=== PATIENT | female | born 1965 | race Caucasian/White ===

== ENCOUNTER 2017-03-19 19:06 | Emergency (ER) | payer OTHER ==
[~2017-03-19] VITALS: Ht 167.6 cm; Wt 83.5 kg
[2017-03-19 19:10] VITALS: Ht 167.6 cm; Wt 83.5 kg
--- NOTE | 2017-03-19 19:43 | ERD ---
ER Documentation Chief Complaint Date/Time DATE: 03/19/17 TIME: 19:42 Chief Complaint abscess right thigh HPI This is a 52-year-old female who presents the emergency department today for concerns of a piece of plastic in her vagina. Patient states that a couple of days ago she had vaginal itching and went to use cream for the itching but did not have the applicator and therefore used a syringe and forgot that the syringe had a cap on it so when she pushed the syringe in she could not find the. States that she went to the hospital last night and had an ultrasound done that showed a suspected foreign body in the superior vagina. She states that her body was not removed as it could not be "found. Denies any fevers or chills ROS All systems reviewed and are negative except as per history of present illness. Medications Home Meds Active Scripts Naproxen* (Naprosyn*) 500 Mg Tablet, 500 MG PO BID Y for PAIN AND/OR INFLAMMATION, #30 TAB Prov:HÉCTOR DE LA CRUZ PA-C 03/19/17 Hydrocodone/Acetaminophen (Saucier 5-325 Tablet) 1 Each Tablet, 1 TAB PO Q6H Y for PAIN, #10 TAB Prov:HÉCTOR DE LA CRUZ PA-C 03/19/17 Allergies Allergies: Coded Allergies: No Known Allergy (Unverified , 03/19/17) PMhx/Soc Medical and Surgical Hx: pt denies Surgical Hx History of Surgery: No Anesthesia Reaction: No Hx Neurological Disorder: No Hx Respiratory Disorders: No Hx Cardiac Disorders: No Hx Psychiatric Problems: No Hx Miscellaneous Medical Probl: Yes (Vaginal Foreign Body) Hx Alcohol Use: No Hx Substance Use: No Hx Tobacco Use: No Smoking Status: Never smoker Physical Exam Vitals Vital Signs Date Time Temp Pulse Resp B/P Pulse Ox O2 Delivery O2 Flow Rate FiO2 03/19/17 19:10 99.2 60 20 120/60 99 Physical Exam Const: NAD Head: Atraumatic Eyes: Normal Conjunctiva ENT: Normal External Ears, Nose and Mouth. Neck: Full range of motion..~ No meningismus. Resp: Clear to auscultation bilaterally Cardio: Regular rate and rhythm, no murmurs Abd: Soft, non tender, non distended. Normal bowel sounds : Vaginal exam with evidence of vaginal discharge. No evidence of foreign body. No cervical motion tenderness. Skin: No petechiae or rashes Back: No midline or flank tenderness Ext: No cyanosis, or edema Neur: Awake and alert Psych: Normal Mood and Affect Result Diagram: 03/19/17200503/19/172005 Results 24 hrs Laboratory Tests Test 03/19/17 20:00 03/19/17 20:06 Urine Color STRAW Urine Clarity CLEAR Urine pH 6.0 Urine Specific [place] 1.010 Urine Ketones NEGATIVEmg/dL Urine Nitrite NEGATIVEmg/dL Urine Bilirubin NEGATIVEmg/dL Urine Urobilinogen NEGATIVEmg/dL Urine Leukocyte Esterase TRACELeu/ul Urine Microscopic RBC 0/HPF Urine Microscopic WBC 2/HPF Urine Hemoglobin NEGATIVEmg/dL Urine Glucose NEGATIVEmg/dL Urine Total Protein NEGATIVEmg/dl White Blood Count 8.010^3/ul Red Blood Count 4.1310^6/ul Hemoglobin 12.0g/dl Hematocrit 38.0% Mean Corpuscular Volume 92.0fl Mean Corpuscular Hemoglobin 29.1pg Mean Corpuscular Hemoglobin Concent 31.6g/dl Red Cell Distribution Width 13.0% Platelet Count 34156^3/UL Mean Platelet Volume 10.8fl Neutrophils % 65.5% Lymphocytes % 26.6% Monocytes % 5.6% Eosinophils % 1.2% Basophils % 0.6% Nucleated Red Blood Cells % 0.0/100WBC Neutrophils # 5.310^3/ul Lymphocytes # 2.110^3/ul Monocytes # 0.510^3/ul Eosinophils # 0.110^3/ul Basophils # 0.110^3/ul Nucleated Red Blood Cells # 0.010^3/ul Sodium Level 141mmol/L Potassium Level 4.5mmol/L Chloride Level 103mmol/L Carbon Dioxide Level 30mmol/L Anion Gap 13 Blood Urea Nitrogen 17mg/dl Creatinine 0.73mg/dl Glucose Level 97mg/dl Calcium Level 9.5mg/dl Total Bilirubin 0.2mg/dl Direct Bilirubin 0.00mg/dl Indirect Bilirubin 0.2mg/dl Aspartate Amino Transf (AST/SGOT) 60IU/L Alanine Aminotransferase (ALT/SGPT) 47IU/L Alkaline Phosphatase 70IU/L Total Protein 7.6g/dl Albumin 4.4g/dl Globulin 3.20g/dl Albumin/Globulin Ratio 1.37 Current Medications Medications (Trade) Dose Ordered Sig/Mery Route PRN Reason Start Time Stop Time Status Last Admin Dose Admin Acetaminophen/ Hydrocodone Bitart (Saucier (5/325)) 1 tab ONCE ONCE PO 03/19/17 20:00 03/19/17 20:01 DC 03/19/17 20:13 Ketorolac Tromethamine (Toradol) 30 mg ONCE STAT IM 03/19/17 22:06 03/19/17 22:38 DC Acetaminophen/ Hydrocodone Bitart (Saucier (5/325)) 1 tab ONCE ONCE PO 03/19/17 23:00 03/19/17 23:01 DC 03/19/17 23:01 RUN DATE: 03/19/17 [facility] PAGE 1 RUN TIME: [id number] [place] [address] Drew Brizuela M.D. Trade Recruiter SHAVON#: [id number] Name: JULI NEIL Age/Sex: 52/F Attend Dr: NEYDA GALARZA DO Acct: [id number] MR# : [id number] : 1965 Location: FTE Admit: 03/19/17 Specimen: [id number] Status: Complete Luther: 03/19/17 Rcvd: 03/19 Source: VAGINAL Sp Descrip: Procedure Result Microbiology WET MOUNT Final WHITE BLOOD CELLS 1+ RED BLOOD CELLS NONE SEEN BACTERIA 2+ EPITHELIAL CELLS 3+ MYCELIA NONE SEEN YEAST NONE SEEN HYPHAE NONE SEEN CLUE CELLS NO CLUE CELLS SEEN MOTILE TRICHOMONAS NO MOTILE TRICHOMONAS SEEN ................................................................................ ............ Flags: Critical Hi = *H Critical Lo = *L Microbiology Abnormal = * Abnormal Hi = H Abnormal Lo = L Blood Bank Abnormal = * Susceptability Flags: S = Sensitive R = Resistant I = Intermediate END OF REPORT DIAGNOSTIC IMAGING REPORT Patient: JULI NEIL : 1965 Age: 52 Sex: F MR #: [id number] DOS: 03/19/17 0000 Ordering MD: HÉCTOR DE LA CRUZ PA-C Location: FTE Room/Bed: PROCEDURE: PELVIC ULTRASOUND. CLINICAL INDICATION: Possible foreign body in the vagina. TECHNIQUE: Multiple sonographic images of the pelvis were obtained utilizing a transabdominal and endovaginal technique. COMPARISON: None. FINDINGS: The uterus is in normal in size measuring 8 cm. No endometrial myometrial mass is seen. The endometrium is normal in thickness measuring 5 mm. There is a 5 mm shadowing mass in the endocervix suspicious for foreign body. The ovaries are unremarkable with preserved vascular flow. There is no free pelvic fluid. IMPRESSION: Endocervical 5 mm shadowing mass suspicious for foreign body. RPTAT: HMZ .Christiano Mendoza MD, MD Date Time Electronically viewed and signed by .Christiano Mendoza MD, MD on 03/19/2017 22:43 .Z/ CC: HÉCTOR DE LA CRUZ PA-C Procedures/MDM This is a 52-year-old female who presents the emergency department today for concerns of a foreign body in her vagina after she states that a piece of plastic fell inside of her while trying to apply some vaginal cream. Patient's ultrasound report from outside hospital showed a normal-appearing uterus and no evidence for adnexal mass. There is a suspected foreign body in the superior vagina. I did do a vaginal exam on the patient and patient did have a significant amount of vaginal discharge however there is no evidence of foreign body and I was unable to feel any foreign body manually as well. I repeated laboratory work as well as an ultrasound and wet mount given patient's complaint of right- sided pelvic pain. Laboratory workup shows no elevated white blood cell count. She is not anemic. Platelets are within normal limits. Left lites are within normal limits. Glucose is within normal limits. Liver enzymes are within normal limits. UA shows trace leukocyte esterase otherwise negative for infection test is negative Fungal wet mount shows no evidence of clue cells, yeast or modal trichomonas. Pelvic US shows an endocervical 5 mm shadowing mass suspicious for foreign body. There is no pelvic free fluid. Ovaries are unremarkable with preserved vascular flow. There is no endometrial or myometrial mass seen. Symptoms at this time is consistent with pelvic pain and possible retained foreign body. I did do a pelvic exam with a speculum and was unable to see a foreign body. I also did a manual pelvic exam and did not feel any foreign body. At this time is when patient was sent for ultrasound. Patient's ultrasound results I did place a call to the labor wrist cone worker Dr. Milton, who came down to evaluate the patient and also did a manual pelvic exam and was not able to feel the foreign body. When she looked at the ultrasound she seemed to feel that the possible foreign body may be in the myometrium in the muscle tissue. She is explained this to the patient. She has explained to the patient that she needs to be seen as an outpatient for a likely hysteroscopy. Patient understood. She was given a list of gynecology referrals. She was given Saucier here in the emergency department. She was still continuing to complain of pain and I offered her Toradol however she declined any injections. She was then given 1 more Saucier. Patient was given a prescription for short course of Saucier and Naprosyn for home. At this time the patient is stable for discharge and outpatient management. Patient should follow up with their PCP in the next 1-2 days. They may return to the emergency department sooner for any persistent or worsening of symptoms. Patient understood and agreed with the plan. Departure Diagnosis: Primary Impression: Pelvic pain Additional Impression: Retained foreign body Condition: HÉCTOR Benítez PA-C Mar 19, 2017 19:43
[2017-03-19] MEDS ORDERED: HYDROCODONE/APAP (5/325) TAB PO ONE ×2 (20:00→23:00)
[2017-03-19 20:25] LABS: BASOPHIL # 0.1 10^3/ul (0.0-0.1); BASOPHILS % 0.6 % (0.0-2.0); EOSINOPHILS # 0.1 10^3/ul (0.0-0.5); EOSINOPHILS % 1.2 % (0.0-7.0); LYMPHOCYTES # 2.1 10^3/ul (0.8-2.9); LYMPHOCYTES % 26.6 % (15.0-51.0); MEAN CORPUSCULAR HEMOGLOBIN 29.1 pg (29.0-33.0); MEAN CORPUSCULAR HGB CONC 31.6 g/dl (32.0-37.0); MEAN PLATELET VOLUME 10.8 fl (7.4-10.4); MONOCYTE # 0.5 10^3/ul (0.3-0.9); MONOCYTES % 5.6 % (0.0-11.0); NEUTROPHIL # 5.3 10^3/ul (1.6-7.5); NEUTROPHILS % 65.5 % (39.0-77.0); PLATELET COUNT 202 10^3/UL (140-415); RED BLOOD COUNT 4.13 10^6/ul (4.20-5.40)
[2017-03-19 20:33] LABS: ADD UMIC YES; UR ASCORBIC ACID NEGATIVE (NEGATIVE); UR BILIRUBIN (Dip) NEGATIVE (NEGATIVE); UR BLOOD (Dip) NEGATIVE (NEGATIVE); UR CLARITY CLEAR (CLEAR); UR COLOR STRAW (YELLOW); UR GLUCOSE (Dip) NEGATIVE (NEGATIVE); UR KETONES (Dip) NEGATIVE (NEGATIVE); UR LEUKOCYTE ESTERASE (Dip) TRACE Leu/ul (NEGATIVE); UR NITRITE (Dip) NEGATIVE (NEGATIVE); UR RBC 0 /HPF (0-5); UR TOTAL PROTEIN (Dip) NEGATIVE (NEGATIVE); UR UROBILINOGEN (Dip) NEGATIVE (NEGATIVE)
[2017-03-19 20:48] LABS: ALBUMIN 4.4 g/dl (3.3-4.9); ALBUMIN/GLOBULIN RATIO 1.37; BILIRUBIN,INDIRECT 0.2 mg/dl (0-1.1); BILIRUBIN,TOTAL 0.2 mg/dl (0.2-1.3); CALCIUM 9.5 mg/dl (8.4-10.2); CREATININE 0.73 mg/dl (0.44-1.00); POTASSIUM 4.5 mmol/L (3.5-5.1); TOTAL PROTEIN 7.6 g/dl (6.1-8.1)
[2017-03-19] MEDS ORDERED: KETOROLAC 30 MG INJ IM STA (22:06)
--- NOTE | 2017-03-19 22:44 | RADRPT ---
PROCEDURE: PELVIC ULTRASOUND. CLINICAL INDICATION: Possible foreign body in the vagina. TECHNIQUE: Multiple sonographic images of the pelvis were obtained utilizing a transabdominal and endovaginal technique. COMPARISON: None. FINDINGS: The uterus is in normal in size measuring 8 cm. No endometrial myometrial mass is seen. The endometr ium is normal in thickness measuring 5 mm. There is a 5 mm shadowing mass in the endocervix suspicious for foreign body. The ovaries are unremarkable with preserved vascular flow. There is no free pelvic fluid. IMPRESSION: Endocervical 5 mm shadowing mass suspicious for foreign body. RPTAT: HMZ .Christiano Mendoza MD, MD Date Time Electronically viewed and signed by .Christiano Mendoza MD, on 03/19/2017 22:43 .Z/
--- NOTE | 2017-03-19 23:48 | CONS ---
Date/Time of Note Date/Time of Note DATE: 03/19/17 TIME: 23:40 Assessment/Plan Assessment/Plan Additional Assessment/Plan 52 y/o P3 with foreign body placed intravaginally which could not be removed at bedside but US shows e/o foreign body -f/u as outpatient to schedule removal was location determined -consider further imaging with MRI for location Consultation Date/Type/Reason Admit Date/Time Date of Consultation: Mar 19, 2017 Reason for Consultation foreign body Hx of Present Illness 52 y/o P3 who presents with pain from foreign body for the last week. Patient reports placing antifungal cream intravaginally with capped syringe. She pushed cream with cap on syringe with lots of pressure against the resistance and subsequently realized she displaced the cap intravaginally. She was seen in [place] and was noted to have a foreign body 0.5cm in the superior vagina but it could not be located or removed. She then came to the ER and repeat US showed a foreign body 0.5cm in the endocervix. Per HPI. Other systems negative. Past Medical History Medical History: no pertinent history Past Surgical History Past Surgical Hx: no surgical history Family History Significant Family History: no pertinent family hx Social History No habits. Smoking Status: Never smoker Exam/Review of Systems Vital Signs Vitals Vital Signs Date Time Temp Pulse Resp B/P Pulse Ox O2 Delivery O2 Flow Rate FiO2 03/19/17 19:10 99.2 60 20 120/60 99 Exam Gen: NAD HEENT: NCAT CV: RRR Pulm: CTAB Abd: soft, NT Back: no CVAT Ext: NT Pelvic exam: no palpable foreign body in vagina or endocervix, nontender on exam Results Result Diagram: 03/19/17200503/19/172005 Results 24 hrs Laboratory Tests Test 03/19/17 20:00 03/19/17 20:06 Urine Color STRAW Urine Clarity CLEAR Urine pH 6.0 Urine Specific [place] 1.010 Urine Ketones NEGATIVE Urine Nitrite NEGATIVE Urine Bilirubin NEGATIVE Urine Urobilinogen NEGATIVE Urine Leukocyte Esterase TRACE A Urine Microscopic RBC 0 Urine Microscopic WBC 2 Urine Hemoglobin NEGATIVE Urine Glucose NEGATIVE Urine Total Protein NEGATIVE White Blood Count 8.0 Red Blood Count 4.13 L Hemoglobin 12.0 Hematocrit 38.0 Mean Corpuscular Volume 92.0 Mean Corpuscular Hemoglobin 29.1 Mean Corpuscular Hemoglobin Concent 31.6 L Red Cell Distribution Width 13.0 Platelet Count 202 Mean Platelet Volume 10.8 H Neutrophils % 65.5 Lymphocytes % 26.6 Monocytes % 5.6 Eosinophils % 1.2 Basophils % 0.6 Nucleated Red Blood Cells % 0.0 Neutrophils # 5.3 Lymphocytes # 2.1 Monocytes # 0.5 Eosinophils # 0.1 Basophils # 0.1 Nucleated Red Blood Cells # 0.0 Sodium Level 141 Potassium Level 4.5 Chloride Level 103 Carbon Dioxide Level 30 Anion Gap 13 Blood Urea Nitrogen 17 Creatinine 0.73 Glucose Level 97 Calcium Level 9.5 Total Bilirubin 0.2 Direct Bilirubin 0.00 Indirect Bilirubin 0.2 Aspartate Amino Transf (AST/SGOT) 60 H Alanine Aminotransferase (ALT/SGPT) 47 Alkaline Phosphatase 70 Total Protein 7.6 Albumin 4.4 Globulin 3.20 Albumin/Globulin Ratio 1.37 LADARIUS DOHERTY Mar 19, 2017 23:48
[2017-03-19] MEDS ORDERED: NAPR-260 PO (23:51)
[2017-03-19] MEDS ORDERED: HYDR-906 PO (23:51)
[2017-03-20 00:10] VITALS: BP 118/60; PULSE 72; RESP 20; TEMP 98.9
== END 2017-03-20 00:11 | disposition home or self-care (01) ==
LOC: FTE 19:06
DX: R10.2 Pelvic and perineal pain (principal); X58.XXXA Exposure to other specified factors, initial encounter; Y92.9 Unspecified place or not applicable
CPT/HCPCS: 36415; 76830; 76856; 80053; 81001; 85025; 87210; Z7502; Z7610; J1885

== ENCOUNTER 2017-04-26 07:09 | Day surgery (SDC) | payer OTHER ==
[~2017-04-26] VITALS: Ht 157.5 cm; Wt 80.0 kg
[2017-04-26] VITALS (8 sets, daily range): BP systolic 100–125; BP diastolic 57–72; PULSE 51–60; RESP 14–26; Ht 157.5 cm; Wt 80.0 kg
[~2017-04-26 07:09] MED LIST: HYDR-906 PO; LACTATED RINGER'S 1,000 ML IV* SCH; NAPR-260 PO
[2017-04-26 08:05] LABS: BASOPHILS % 0.7 % (0.0-2.0); EOSINOPHILS # 0.1 10^3/ul (0.0-0.5); EOSINOPHILS % 2.2 % (0.0-7.0); HEMOGLOBIN 13.1 g/dl (12.0-16.0); LYMPHOCYTES # 1.6 10^3/ul (0.8-2.9); LYMPHOCYTES % 30.1 % (15.0-51.0); MEAN CORPUSCULAR HEMOGLOBIN 30.1 pg (29.0-33.0); MEAN CORPUSCULAR HGB CONC 32.8 g/dl (32.0-37.0); MEAN PLATELET VOLUME 10.9 fl (7.4-10.4); MONOCYTE # 0.3 10^3/ul (0.3-0.9); MONOCYTES % 5.7 % (0.0-11.0); NEUTROPHIL # 3.3 10^3/ul (1.6-7.5); NEUTROPHILS % 60.9 % (39.0-77.0); PLATELET COUNT 181 10^3/UL (140-415); RED BLOOD COUNT 4.35 10^6/ul (4.20-5.40); RED CELL DISTRIBUTION WIDTH 12.3 % (11.5-14.5); WHITE BLOOD COUNT 5.4 10^3/ul (4.8-10.8)
[2017-04-26 08:06] LABS: ADD UMIC YES; UR ASCORBIC ACID NEGATIVE (NEGATIVE); UR BACTERIA FEW /HPF (NONE SEEN); UR BILIRUBIN (Dip) NEGATIVE (NEGATIVE); UR BLOOD (Dip) 1+ mg/dL (NEGATIVE); UR CLARITY SLIGHTLY CLOUDY (CLEAR); UR COLOR YELLOW (YELLOW); UR GLUCOSE (Dip) NEGATIVE (NEGATIVE); UR KETONES (Dip) NEGATIVE (NEGATIVE); UR LEUKOCYTE ESTERASE (Dip) NEGATIVE Leu/ul (NEGATIVE); UR MUCUS FEW /HPF (NONE SEEN); UR NITRITE (Dip) NEGATIVE (NEGATIVE); UR RBC 3 /HPF (0-5); UR SQUAMOUS EPITHELIAL CELL FEW /HPF (FEW); UR TOTAL PROTEIN (Dip) NEGATIVE (NEGATIVE); UR UROBILINOGEN (Dip) NEGATIVE (NEGATIVE)
--- NOTE | 2017-04-26 08:18 | RADRPT ---
PROCEDURE: XR Chest. CLINICAL INDICATION: Preoperative. TECHNIQUE: Single frontal view. COMPARISON: None. FINDINGS: The lungs are clear. The heart size is normal. There is no pleural effusion. There is no pneumothorax. IMPRESSION: 1. Normal chest radiograph. RPTAT: QQ .Timmy Grant MD, Date Time Electronically viewed and signed by .Timmy Grant MD, MD on 04/26/2017 08:17 .R/
[2017-04-26 08:31] LABS: INR 0.86; PROTIME 11.7 Sec (12.2-14.2); PT RATIO 0.9
[2017-04-26 08:32] LABS: PARTIAL THROMBOPLASTIN TIME 27.4 Sec (25.0-35.0)
[2017-04-26 08:37] LABS: ALBUMIN 4.2 g/dl (3.3-4.9); ALBUMIN/GLOBULIN RATIO 1.35; BILIRUBIN,INDIRECT 0.2 mg/dl (0-1.1); BILIRUBIN,TOTAL 0.2 mg/dl (0.2-1.3); TOTAL PROTEIN 7.3 g/dl (6.1-8.1)
[2017-04-26 08:38] LABS: CALCIUM 9.4 mg/dl (8.4-10.2); CREATININE 0.67 mg/dl (0.44-1.00); POTASSIUM 4.1 mmol/L (3.5-5.1)
[2017-04-26] MEDS ORDERED: DEXAMETHASONE 4 MG/ML 1 ML INJ ONE (09:09)
[2017-04-26] MEDS ORDERED: CEFAZOLIN 1 GM INJ ONE ×2 (09:09→10:03)
[2017-04-26] MEDS ORDERED: FENTAnyl 50 MCG/ML VIAL ONE (09:20)
[2017-04-26] MEDS ORDERED: MIDAZOLAM 1 MG/ML 2 ML INJ ONE (09:20)
[2017-04-26] MEDS ORDERED: PROPOFOL 0 ML ONE (09:21)
[2017-04-26] MEDS ORDERED: ONDANSETRON 4 MG INJ ONE ×2 (09:21→10:03)
[2017-04-26] MEDS ORDERED: ACETAMINOPHEN 1000MG/100ML IV 0 ML ONE (09:27)
[2017-04-26] MEDS ORDERED: morphine 10 MG INJ ONE (09:48)
[2017-04-26] MEDS ORDERED: PROPOFOL 20 ML ONE (10:02)
[2017-04-26] MEDS ORDERED: LIDOCAINE 2% (SDV) 5 ML INJ ONE (10:02)
--- NOTE | 2017-04-26 10:17 | SIPON ---
Date/Time of Note Date/Time of Note DATE: 04/26/17 TIME: 10:14 Operative Report Preoperative Diagnosis foriegn body in the endocervical canal Postoperative Diagnosis no foriegn body found Operation/Procedure Performed diatation and curettage attempted removal of foriegn body Surgeon see signature line captain's assistant christina DE LA CRUZ Anesthesia: general Estimated blood loss: minimal Transfusion Required none Specimen uterine curettage Grafts/Implants none Complications none KLARISSA ORTEGA MD Apr 26, 2017 10:17
--- NOTE | 2017-04-26 10:19 | PD.PPDC ---
MEDICAL FACILITIES SECTION DIRECTOR Discharge Instruction Diagnosis Final Diagnosis: foreign body in the endocervical canal Condition Patient Condition: Stable Diet Diet: Resume Regular Diet Activity/Restrictions Activity: May Shower Restrictions: No Sexual Activity Nothing in the Vagina No [place] No Tampons, douche Follow-up Follow-up with Physician: Week/Weeks Return to clinic for MOTIVATIONAL SPEAKER Instructions: Fever greater than 101 Chills Worsening abdominal pain Excessive Vaginal Bleeding More than 2 pads per hour Unable to tolerate diet KLARISSA ORTEGA MD Apr 26, 2017 10:19
--- NOTE | 2017-04-27 19:29 | OPR ---
DATE OF OPERATION: 04/26/2017 PREOPERATIVE DIAGNOSIS: Foreign body in endocervical canal. POSTOPERATIVE DIAGNOSIS: No foreign body noted in the endocervical canal or the uterine cavity. OPERATION PERFORMED: Dilation and curettage and the attempted removal of foreign body from the endo cervical canal. SURGEON: Cristi Mark MD. FLUORESCENT LAMP REPLACER: None. ANESTHESIOLOGIST: Dr. Lind. ANESTHESIA: General. ESTIMATED BLOOD LOSS: Minimal. DESCRIPTION PROCEDURE: Under appropriate induction of general anesthesia, the patient was placed in dorsal lithotomy position. Perineal area and vagina wall was prepped and draped in usual aseptic m arabella. On bimanual examination, uterus felt to be normal size and consistency. There was no palpab le adnexal pathology. External genitalia revealed no gross abnormality neither. Weighted speculum introduced, cervix was identified with difficulty due to the long vaginal cavity. Cervix was flat, which was grasped with a single tooth tenaculum. Before the sound was in, searched for the foreign body, which was supposed to be there according to the ultrasound, which measured 7.5 cm mass in the canal, which was not able to be felt, and at this point, the cavity was sounded, which was 7 cm. Os dilated gradually enough to put the poly forceps. The entire cavity was searched for the foreign b jamal, which was not able to be retrieved. Cavity was curetted in all directions. Did not feel any f oreign body sensation. Numerous times we checked multiple areas, which failed to discover the forei gn body. At this point, ultrasound was ordered, but which would take another 32 hours to be at the OR, which will cause unnecessary exposure to the anesthesia. At this point, procedure was ended and all the instruments were removed from the operative field. Estimated blood loss was minimal. The patient withstood the procedure well and was sent to recovery room in stable condition. A specimen from the curettage was also sent for the pathology exam, but there was no foreign body retrieved. T his foreign body actually was shown to me by patient, which was a cap of vaginal cream which is plas tic, which does not have a sharp point enough to penetrate the uterine cavity. Either it was expell ed by itself or from the beginning maybe it was not there, but according to the ultrasound there is a small possibility of a foreign body in cervical canal, which could have had been expelled, and leonel l follow up after 2 weeks after the procedure. Dictated By: CRISTI HANCOCK/TAMIR Conf#: [id number] DID#: [id number]
--- NOTE | 2017-04-29 16:03 | RADRPT ---
Vent Rate: 46 bpm RR Interval: 0 msec IA Interval: 180 msec QRS Duration: 94 msec QT Interval: 436 msec QTC Interval: 381 msec P-R-T [place]: 50 - 68 - 58 degrees Marked sinus bradycardia Abnormal ECG Electronically Signed By: Heraclio [place] [id number]
== END 2017-04-26 13:38 | disposition home or self-care (01) ==
LOC: SDS 07:09
PROVIDERS: ATTEND Obstetrics & Gynecology
DX: T19.3XXA Foreign body in uterus, initial encounter (principal); X58.XXXA Exposure to other specified factors, initial encounter; Z82.49 Family history of ischemic heart disease and other diseases of the circulatory system; Z83.3 Family history of diabetes mellitus; Z80.3 Family history of malignant neoplasm of breast
CPT/HCPCS: 58120; 71010; 80053; 81001; 85025; 85610; 85730; 88305; 93005; J0690; J2250; J2405; J3010; Z7512; Z7610; J0131; J1100; J2270